=== PATIENT | female | born 1980 | race Caucasian/White ===

== ENCOUNTER 2017-08-29 15:19 | Emergency (ER) | payer OTHER ==
[~2017-08-29] VITALS: Ht 172.7 cm; Wt 134.6 kg
[~2017-08-29 15:19] MED LIST: ALBU8.5H3 IH; PREN-155 PO
[2017-08-29 18:50] VITALS: BP 112/78
[2017-08-29] MEDS ORDERED: TraMADol HCL 50 MG TABLET PO ONE (19:30)
== END 2017-08-29 19:46 | disposition home or self-care (01) ==
LOC: EMS 15:27
DX: S83.91XA Sprain of unspecified site of right knee, initial encounter (principal); M25.461 Effusion, right knee; E66.01 Morbid (severe) obesity due to excess calories; J45.909 Unspecified asthma, uncomplicated; Z88.6 Allergy status to analgesic agent; Z68.42 Body mass index [BMI] 45.0-49.9, adult; X58.XXXA Exposure to other specified factors, initial encounter; Y93.89 Activity, other specified; Y92.89 Other specified places as the place of occurrence of the external cause; Y99.8 Other external cause status
CPT/HCPCS: 99285

== ENCOUNTER 2017-09-07 05:28 | Day surgery (SDC) | payer OTHER ==
[~2017-09-07] VITALS: Ht 172.7 cm; Wt 138.6 kg
[~2017-09-07 05:28] MED LIST changes: -ALBU8.5H3 IH; +IBUP-2070 PO; -PREN-155 PO; +RINGERS SOLUTION,LACTATED 1,000 ML IV ONE
[2017-09-07] MEDS ORDERED: MIDAZOLAM HCL 2 MG/2 ML VIAL IVP ONE (05:29)
[2017-09-07] MEDS ORDERED: PROPOFOL 1% 20 ML VIAL IVP ONE (05:29)
[2017-09-07] MEDS ORDERED: FentaNYL CITRATE-PF 100 MCG/2 ML VIAL IVP ONE (05:29)
[2017-09-07] MEDS ORDERED: LIDOCAINE HCL/PF 2% 5 ML VIAL IM ONE (05:29)
[2017-09-07] MEDS ORDERED: SUCCINYLCHOLINE CHLORIDE 20 MG/ML 10 ML VIAL IVP ONE (05:29)
[2017-09-07] MEDS ORDERED: EPHEDrine SULFATE 50 MG/ML VIAL IM ONE (05:29)
[2017-09-07 05:51] LABS: BASOPHILS % (AUTO) 0.6 % (0.0-2.0); EOSINOPHILS % (AUTO) 3.1 % (1.0-6.0); HEMOGLOBIN 11.6 g/dL (12.0-16.0); LYMPHOCYTES % (AUTO) 29.2 % (22.0-44.0); MEAN CORPUSCULAR HEMOGLOBIN 29.6 pg (26.0-34.0); MEAN CORPUSCULAR VOLUME 87 fL (80-100); MONOCYTES # (AUTO) 0.4 K/uL (0.1-1.0); MONOCYTES % (AUTO) 5.7 % (2.0-9.0); NEUTROPHILS # (AUTO) 4.2 K/uL (1.8-7.7); NEUTROPHILS % (AUTO) 61.4 % (40.0-70.0); PLATELET COUNT (AUTO) 274 K/uL (150-450); RED BLOOD CELL COUNT(AUTO) 3.91 MIL/uL (4.00-5.20); RED CELL DISTRIBUTION WIDTH 15.6 % (11.5-14.5)
[2017-09-07] MEDS ORDERED: MUPIROCIN CALCIUM 2% 22 GM OINTMENT ONE (06:30)
[2017-09-07] MEDS ORDERED: BUPIVACAINE HCL/PF 0.25% 30 ML VIAL ONE (06:30)
[2017-09-07] MEDS ORDERED: GUM MASTIC/STORAX/MSAL/ALCOHOL LIQUID 0.67 ML VIAL TP ONE (06:30)
[2017-09-07] MEDS ORDERED: SODIUM CL IRRIG SOLN BAG 0 ML IRRIG ONE (06:31)
[2017-09-07] MEDS ORDERED: RINGERS SOLUTION,LACTATED 1,000 ML IV SCH (07:00)
[2017-09-07] MEDS ORDERED: LIDOCAINE HCL/PF 1% 2 ML VIAL ID ONE (07:00)
[2017-09-07] MEDS ORDERED: VANCOMYCIN HCL 1.5 GM in DEXTROSE 5%-WATER 250 ML IV ONE (07:00)
[2017-09-07] MEDS ORDERED: BUPIVACAINE LIPOSOME/PF 1.3%-13.3MG/ML SUSPENSION 20 ML VIAL INJ ONE (08:00)
[2017-09-07] MEDS ORDERED: MEPERIDINE-PF 25 MG/ML SYRINGE IVP PRN (08:15)
[2017-09-07] MEDS ORDERED: ONDANSETRON HCL 4 MG/2 ML VIAL IVP PRN (08:15)
[2017-09-07] MEDS ORDERED: KETOROLAC TROMETHAMINE 30 MG/ML VIAL IVP PRN (08:15)
[2017-09-07] MEDS ORDERED: FentaNYL CITRATE-PF 100 MCG/2 ML VIAL ONE ×2 (08:59→09:06)
[2017-09-07] MEDS: FentaNYL CITRATE-PF 100 MCG/2 ML VIAL IVP PRN ×3 (09:04→09:12)
[2017-09-07] MEDS ORDERED: HYDROmorphone 2 MG/ML SYRINGE ONE (09:15)
[2017-09-07] MEDS: HYDROmorphone 2 MG/ML SYRINGE IVP PRN ×4 (09:17→09:43)
[2017-09-07 09:40] LABS: SPECIMENTYPE,BODY FLUID SYNOVIAL
[2017-09-07] MEDS ORDERED: RINGERS SOLUTION,LACTATED 500 ML IV ONE (10:03)
[2017-09-07 11:49] LABS: APPEARANCE,SPUN,BODY FLUID CLEAR (CLEAR); APPEARANCE,UNSPUN,BODY FLUID HAZY (CLEAR); COLOR,BODY FLUID YELLOW (LT YELLOW); TOTAL VOLUME,BODY FLUID 5 mL
[2017-09-07 11:50] LABS: BASOPHILS,BODY FLUID 0 %; EOSINOPHILS,BF (ANAL) 0 %; LYMPHOCYTES,BODY FLUID 25 %; MONOCYTES,BODY FLUID 33 %; NEUTROPHILS,BODY FLUID 42 %; WBC, BODY FLUID 6 /cu. mm.
== END 2017-09-07 11:25 | disposition home or self-care (01) ==
LOC: SURGERY 05:28
PROVIDERS: ATTEND Orthopaedic Surgery
DX: S83.281A Other tear of lateral meniscus, current injury, right knee, initial encounter (principal); M17.11 Unilateral primary osteoarthritis, right knee; M65.861 Other synovitis and tenosynovitis, right lower leg; M62.89 Other specified disorders of muscle; M22.41 Chondromalacia patellae, right knee; E66.01 Morbid (severe) obesity due to excess calories; Z88.0 Allergy status to penicillin; Z88.6 Allergy status to analgesic agent; Z79.82 Long term (current) use of aspirin; Z68.42 Body mass index [BMI] 45.0-49.9, adult; Z98.890 Other specified postprocedural states; Z90.710 Acquired absence of both cervix and uterus; Z87.891 Personal history of nicotine dependence; Z98.51 Tubal ligation status; Z90.89 Acquired absence of other organs; Z79.1 Long term (current) use of non-steroidal anti-inflammatories (NSAID); X58.XXXA Exposure to other specified factors, initial encounter; Y93.9 Activity, unspecified; Y92.9 Unspecified place or not applicable
CPT/HCPCS: 29881; 36415; 85025; 88304; 88311; 89051; C9290; J0330; J1170; J2250; J2704; J3010; J3370; J3490 ×3; J7060; J7120 ×2